=== PATIENT | female | born 1945 | race Asian ===

== ENCOUNTER 2016-09-30 06:45 | Inpatient (IN) ==
[2016-09-24 13:03] LABS: Basophils # (Auto) 0 K/mcL (0.0-0.3); Basophils % (Auto) 0.6 % (0.0-2.0); Eosinophils # (Auto) 0.2 K/mcL (0.0-0.7); Eosinophils % (Auto) 3.5 % (0.0-7.0); Granulocytes % (Auto) 50.5 % (38.0-78.0); Lymphocytes % (Auto) 37.9 % (15.5-49.0); Mean Cell Volume 90.2 fL (80.0-100.0); Mean Corpuscular HGB Conc 33.3 g/dL (31.0-36.0); Mean Corpuscular Hemoglobin 30.1 pg (26.0-34.0); Monocytes # (Auto) 0.4 K/mcL (0.1-0.9); Monocytes % (Auto) 7.5 % (1.0-12.0); Platelet Count 265 K/mcL (140-440); RBC 4.44 M/mcL (4.00-5.20); Red Cell Distribution Width 15.5 % (11.5-14.5)
[2016-09-24 13:06] LABS: Blood Urea Nitrogen 13 mg/dl (8-23)
[2016-09-24 13:24] LABS: Appearance,Urine CLEAR; Bacteria,Urine MOD /hpf (0); Bilirubin,Urine NEG (NEG); Color,Urine YELLOW; Glucose,Urine (UA) NEGATIVE (NEG); Leukocyte Esterase,Urine 500 /uL (NEG); Mucus,Urine FEW /hpf (0); Nitrate,Urine POS (NEG); Protein,Urine NEG (NEG); Specific Gravity,Urine 1.009 (1.000-1.035); Urine Blood NEG mg/dL (<0.03); Urine RBC 1 /hpf (0-1); Urine Squamous Epithelial Cell 1 /hpf (0-4); Urine Transitional Epi Cells < 1 /hpf (0-2); Urine WBC 14 /hpf (0-4); Urobilinogen,Urine NEG (NEG)
[~2016-09-30 06:45] MED LIST: CELECOXIB 200 MG CAPSULE PO SCH; KETOROLAC 30 MG, ROPIVACAINE HCL/PF 49.5 ML, EPINEPHrine 0.5 MG, 0.9 % SODIUM CHLORIDE ... IJ SCH; PREGABALIN 75 MG CAPSULE PO SCH; ceFAZolin 1 GM VIAL IV SCH; oxyCODONE 10 MG TAB.ER.12H PO SCH
[2016-09-30 07:40] LABS: Appearance,Urine CLEAR; Bacteria,Urine 0 /hpf (0); Bilirubin,Urine NEG (NEG); Color,Urine STRAW; Glucose,Urine (UA) NEGATIVE (NEG); Leukocyte Esterase,Urine 250 /uL (NEG); Mucus,Urine FEW /hpf (0); Nitrate,Urine NEG (NEG); Protein,Urine NEG (NEG); Specific Gravity,Urine 1.014 (1.000-1.035); Urine Blood NEG mg/dL (<0.03); Urine RBC 1 /hpf (0-1); Urine Squamous Epithelial Cell 1 /hpf (0-4); Urine Transitional Epi Cells 1 /hpf (0-2); Urine WBC 7 /hpf (0-4); Urobilinogen,Urine NEG (NEG)
[2016-09-30] MEDS ORDERED: GENTAMICIN PER PHARMACY IV ONE (09:22)
[2016-09-30] MEDS ORDERED: SODIUM CHLORIDE 0.9% IV ONE (09:45)
[2016-09-30] MEDS ORDERED: GENTAMICIN SULFATE IV ONE (09:45)
[2016-09-30] MEDS ORDERED: PROPOFOL 200 MG/20 ML VIAL IV ONE (10:10)
[2016-09-30] MEDS ORDERED: TRANEXAMIC ACID 1,000 MG/10 ML VIAL IV ONE ×2 (10:10→12:33)
[2016-09-30] MEDS ORDERED: KETAMINE 100 MG/ML ML IV ONE (10:10)
[2016-09-30] MEDS ORDERED: MIDAZOLAM 5 MG/5 ML VIAL IV ONE (10:10)
[2016-09-30] MEDS ORDERED: ONDANSETRON 4 MG/2 ML VIAL IV ONE (10:10)
[2016-09-30] MEDS ORDERED: PHENYLEPHRINE 10 MG/ML VIAL IV ONE (10:10)
[2016-09-30] MEDS ORDERED: LIDOCAINE HCL/PF 100 MG/5 ML SYRINGE IV ONE (10:10)
[2016-09-30] MEDS ORDERED: GLYCOPYRROLATE 0.2 MG/ML VIAL IV ONE (10:10)
[2016-09-30] MEDS ORDERED: GENTAMICIN SULFATE 800 MG/20 ML VIAL IR ONE (10:38)
[2016-09-30] MEDS ORDERED: FLEETS ADULT ENEMA PR PRN (12:33)
[2016-09-30] MEDS ORDERED: POLYETHYLENE GLYCOL 3350 17 GM PACKET PO PRN (12:33)
[2016-09-30] MEDS ORDERED: BISACODYL 10 MG SUPP.RECT PR PRN (12:33)
[2016-09-30] MEDS ORDERED: MAG HYDROX/AL HYDROX/SIMETH 30 ML ORAL.SUSP PO PRN (12:33)
[2016-09-30] MEDS ORDERED: METHOCARBAMOL 1,000 MG/10 ML VIAL IV PRN ×2 (12:33→12:45)
[2016-09-30] MEDS ORDERED: BENZOCAINE/MENTHOL 1 LOZENGE PO PRN ×2 (12:33→12:45)
[2016-09-30] MEDS ORDERED: MAGNESIUM HYDROXIDE 30 ML ORAL.SUSP PO PRN (12:33)
--- NOTE | 2016-09-30 12:33 | Brief Operative Note ---
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
[2016-09-30] MEDS ORDERED: DOCUSATE SODIUM 100 MG CAPSULE PO PRN (12:37)
[2016-09-30] MEDS ORDERED: IPRATROPIUM/ALBUTEROL 3 ML AMPUL.NEB NEB PRN (12:45)
[2016-09-30] MEDS ORDERED: fentaNYL 100 MCG/2 ML VIAL IV PRN (12:45)
[2016-09-30] MEDS ORDERED: PROMETHAZINE 25 MG/ML VIAL IV PRN (12:45)
[2016-09-30] MEDS ORDERED: LACTATED RINGERS 1,000 ML IV SCH (12:45)
[2016-09-30] MEDS ORDERED: ePHEDrine 50 MG/ML AMPUL IV PRN (12:45)
[2016-09-30] MEDS ORDERED: MEPERIDINE 25 MG/ML SYRINGE IV PRN (12:45)
[2016-09-30] MEDS ORDERED: HYDROmorphone 2 MG/ML SYRINGE IV PRN (12:45)
[2016-09-30] MEDS ORDERED: ACETAMINOPHEN 1,000 MG/100 ML BOTTLE IV ONE (12:45)
--- NOTE | 2016-09-30 13:40 | XRay Report ---
CLINICAL INFORMATION: Postsurgical follow-up TECHNIQUE: AP and crosstable lateral portable right knee COMPARISON: Previous examination 02/20/2016 FINDINGS: Status post right total knee arthroplasty. This is a surgical revision of placement of new femoral and tibial prosthetic complements with longer stems. Alignment is anatomic. There is postsurgical gas in the right knee joint space. IMPRESSION: Status post right total knee arthroplasty Interpreted and Authenticated by: James Martin 09/30/16
[2016-09-30] MEDS: 0.9 % SODIUM CHLORIDE 10 ML SYRINGE IV SCH ×2 (13:47→21:34)
[2016-09-30] MEDS: HYDROmorphone 2 MG/ML SYRINGE IV PRN ×3 (13:55→22:00)
[2016-09-30] MEDS: 0.9 % SODIUM CHLORIDE 1,000 ML IV SCH (13:55)
[2016-09-30] MEDS: ONDANSETRON 4 MG/2 ML VIAL IV PRN ×2 (14:03→18:27)
[2016-09-30] MEDS: ceFAZolin 1 GM VIAL IV SCH (17:50)
[2016-09-30] MEDS: KETOROLAC 15 MG/ML VIAL IV SCH (18:27)
[2016-09-30] MEDS: SENNOSIDES 1 TABLET PO SCH (21:31)
[2016-09-30] MEDS: LOSARTAN 50 MG TABLET PO SCH (21:32)
[2016-09-30] MEDS: ASPIRIN 325 MG ENTERIC COATED TABLET PO SCH (21:32)
[2016-09-30] MEDS: DOXAZOSIN 1 MG TABLET PO SCH (21:32)
[2016-09-30] MEDS: CIPROFLOXACIN 500 MG TABLET PO SCH (21:32)
[2016-09-30] MEDS: DOCUSATE SODIUM 100 MG CAPSULE PO SCH (21:32)
[2016-09-30] MEDS: ONDANSETRON ODT 4 MG TABLET SL PRN (21:47)
[2016-10-01] MEDS: KETOROLAC 15 MG/ML VIAL IV SCH ×5 (00:07→23:55)
[2016-10-01] MEDS: 0.9 % SODIUM CHLORIDE 1,000 ML IV SCH ×3 (00:13→17:47)
[2016-10-01] MEDS: HYDROmorphone 2 MG/ML SYRINGE IV PRN ×3 (00:41→10:59)
[2016-10-01] MEDS: ONDANSETRON 4 MG/2 ML VIAL IV PRN ×2 (01:22→07:38)
[2016-10-01] MEDS: ceFAZolin 1 GM VIAL IV SCH (01:35)
[2016-10-01] MEDS: ONDANSETRON ODT 4 MG TABLET SL PRN (03:34)
[2016-10-01] MEDS: 0.9 % SODIUM CHLORIDE 10 ML SYRINGE IV SCH ×3 (05:23→22:11)
--- NOTE | 2016-10-01 08:03 | Orthopedic Progress Note ---
Subjective Patient information: Note initiated : 10/01/16 at 8:02 am Service Date, if different from initiated Date: [] Patient: Yanick Falk 71 y/o F admitted on 09/30/16 for Right Total Knee Revision. Chief Complaint: [] Interval history: nauseated, pain under control Objective Vital signs: Vital Signs Temp Pulse Resp BP BP Pulse Ox 10/01/16 04:00 97.0 F 69 18 158/72 98 10/01/16 00:00 96.5 F L 54 L 20 158/58 96 09/30/16 22:05 98 09/30/16 20:37 98 09/30/16 20:00 96.8 F L 53 L 18 139/72 98 09/30/16 16:00 16 106/63 100 09/30/16 15:30 98.0 F 16 104/64 100 09/30/16 15:00 16 116/77 97 09/30/16 14:30 16 124/69 98 09/30/16 14:15 16 116/78 92 09/30/16 14:00 18 110/60 90 09/30/16 13:45 97.9 F 18 155/84 93 09/30/16 13:40 98.9 F 68 16 128/68 95 09/30/16 13:25 98.9 F 69 16 132/61 95 09/30/16 13:10 98.9 F 71 16 140/69 96 09/30/16 13:05 98.9 F 79 16 111/53 100 09/30/16 13:00 98.9 F 78 16 96/49 100 09/30/16 12:55 98.9 F 84 16 96/42 97 Intake and Output 09/30/16 10/01/16 10/01/16 21:59 05:59 13:59 Intake Total 1500 / 1500 587 / 587 Output Total 100 / 100 551 / 551 100 / 100 Balance -100 / -100 949 / 949 487 / 487 Intake: IV 1000 / 1000 587 / 587 Sodium Chloride 0.9% 1, 1000 / 1000 587 / 587 000 ml @ 100 mls/hr IV . Q10H STEPHANIE Rx#:[id number] Oral 500 / 500 Output: Void Amount 50 / 50 350 / 350 100 / 100 Straight 300 / 300 # of times incontinent of 1 / 1 urine Emesis 50 / 50 200 / 200 Other: # Voids 1 Weight 150 lb Intake & Output: Intake & Output 09/30/16 10/01/16 10/01/16 21:59 05:59 13:59 Intake Total 1500 / 1500 587 / 587 Output Total 100 / 100 551 / 551 100 / 100 Balance -100 / -100 949 / 949 487 / 487 Weight 150 lb Intake: IV 1000 / 1000 587 / 587 Sodium Chloride 0.9% 1, 1000 / 1000 587 / 587 000 ml @ 100 mls/hr IV . Q10H STEPHANIE Rx#:[id number] Oral 500 / 500 Output: Void Amount 50 / 50 350 / 350 100 / 100 Straight 300 / 300 # of times incontinent of 1 / 1 urine Emesis 50 / 50 200 / 200 Other: # Voids 1 Incision: Yes healing Incision clean and dry: Yes Dressing: Yes clean, Yes dry, Yes intact Weight bearing status: full Neurological exam IM: Yes alert, Yes normal gait, Yes oriented X3, Yes neurovascular intact Extremities exam IM: No calf tenderness, Yes Foot pink and warm, Yes neurovascular intact - Labs CBC & BMP: 10/01/16 04:04 09/24/16 11:36 Labs: Orthopedic Labs 09/24/16 11:36 PT 14.0 INR 1.1 10/01/16 09/24/16 04:04 11:36 Hgb 10.8 L 13.4 Hct 32.3 L 40.0 Assessment and Plan (1) Osteoarthritis pod 1 s/p revision tka pain control nausea control iv fluids restart pt Status: Chronic Comment: rt knee op 02/2016
[2016-10-01] MEDS ORDERED: PROMETHAZINE 25 MG/ML VIAL IV PRN (09:27)
[2016-10-01] MEDS ORDERED: PROCHLORPERAZINE 10 MG/2 ML VIAL IV PRN (10:43)
[2016-10-01] MEDS: ASPIRIN 325 MG ENTERIC COATED TABLET PO SCH ×2 (10:46→22:10)
[2016-10-01] MEDS: LOSARTAN 50 MG TABLET PO SCH ×2 (10:46→22:10)
[2016-10-01] MEDS: DOCUSATE SODIUM 100 MG CAPSULE PO SCH ×2 (10:46→22:10)
[2016-10-01] MEDS: CIPROFLOXACIN 500 MG TABLET PO SCH ×2 (10:46→22:10)
[2016-10-01] MEDS: DOXAZOSIN 1 MG TABLET PO SCH ×2 (10:59→22:10)
[2016-10-01] MEDS: HYDROmorphone 2 MG TABLET PO PRN ×2 (15:18→22:10)
[2016-10-01] MEDS: SENNOSIDES 1 TABLET PO SCH (22:11)
[2016-10-02] MEDS: HYDROmorphone 2 MG TABLET PO PRN ×2 (02:01→08:28)
[2016-10-02] MEDS: 0.9 % SODIUM CHLORIDE 1,000 ML IV SCH (03:56)
[2016-10-02] MEDS: KETOROLAC 15 MG/ML VIAL IV SCH (06:21)
[2016-10-02] MEDS: 0.9 % SODIUM CHLORIDE 10 ML SYRINGE IV SCH (06:21)
--- NOTE | 2016-10-02 07:04 | Orthopedic Progress Note ---
Subjective Patient information: Note initiated : 10/02/16 at 7:03 am Service Date, if different from initiated Date: [] Patient: Yanick Falk 71 y/o F admitted on 09/30/16 for Right Total Knee Revision. Chief Complaint: [] Interval history: doing much better today Objective Vital signs: Vital Signs Temp Pulse Resp BP Pulse Ox 10/02/16 06:00 89 10/02/16 04:00 98.7 F 89 20 127/68 94 10/02/16 00:00 98.7 F 86 20 134/76 93 10/01/16 20:00 98.6 F 90 22 128/66 94 10/01/16 17:00 69 10/01/16 16:00 97.6 F 16 151/69 99 10/01/16 11:54 97.2 F 16 135/70 100 10/01/16 08:00 96.8 F L 69 18 133/75 100 Intake and Output 10/01/16 10/02/16 10/02/16 21:59 05:59 13:59 Intake Total 940 / 940 1700 / 1700 Output Total 727 / 727 375 / 375 Balance 213 / 213 1325 / 1325 Intake: IV 940 / 940 1000 / 1000 Sodium Chloride 0.9% 1, 940 / 940 1000 / 1000 000 ml @ 100 mls/hr IV . Q10H STEPHANIE Rx#:[id number] Oral 700 / 700 Output: Void Amount 725 / 725 375 / 375 # of times incontinent of 2 / 2 urine Other: # Voids 1 Weight 152 lb Intake & Output: Intake & Output 10/01/16 10/02/16 10/02/16 21:59 05:59 13:59 Intake Total 940 / 940 1700 / 1700 Output Total 727 / 727 375 / 375 Balance 213 / 213 1325 / 1325 Weight 152 lb Intake: IV 940 / 940 1000 / 1000 Sodium Chloride 0.9% 1, 940 / 940 1000 / 1000 000 ml @ 100 mls/hr IV . Q10H STEPHANIE Rx#:[id number] Oral 700 / 700 Output: Void Amount 725 / 725 375 / 375 # of times incontinent of 2 / 2 urine Other: # Voids 1 Incision: Yes healing Incision clean and dry: Yes Dressing: Yes clean, Yes dry, Yes intact Weight bearing status: full Neurological exam IM: Yes abnormal gait, Yes alert, Yes oriented X3, Yes motor sensory intact, Yes neurovascular intact Extremities exam IM: No calf tenderness, Yes Foot pink and warm, Yes neurovascular intact - Labs CBC & BMP: 10/02/16 04:23 09/24/16 11:36 Labs: Orthopedic Labs 09/24/16 11:36 PT 14.0 INR 1.1 10/02/16 10/01/16 09/24/16 04:23 04:04 11:36 Hgb 9.2 L 10.8 L 13.4 Hct 27.6 L 32.3 L 40.0 Assessment and Plan (1) Osteoarthritis pod 2 s/p revision tka pain control nausea control - resolved this am pt home today Status: Chronic Comment: rt knee op 02/2016
--- NOTE | 2016-10-02 07:06 | Discharge Summary ---
Ortho Discharge - TKA - Patient Instructions Diet: Regular Diet Activity: activity as tolerated, ambulate with assistive device, weight bearing as tolerated Total Knee Protocol: For Total Knee: Start ROM FRANCO with stationary bike or rocking chair. Work on gaining full extension of knee. Posterior dislocation precautions provided. Hip abductor strengthening and gait training instructions provided. Apply Cryocuff as instructed. Dressing Care: May shower in 2 days - Problem Maintenance (1) Osteoarthritis Status: Chronic Comment: rt knee op 02/2016 - Follow Up Plan Disposition: Home, Self-Care Prognosis: Good Rehab Potential: Good I certify that the patient requires SNF services: No Overall status at discharge: patient is progressing back to baseline
[2016-10-02] MEDS: CIPROFLOXACIN 500 MG TABLET PO SCH (08:38)
[2016-10-02] MEDS: DOCUSATE SODIUM 100 MG CAPSULE PO SCH (08:38)
[2016-10-02] MEDS: LOSARTAN 50 MG TABLET PO SCH (08:38)
[2016-10-02] MEDS: DOXAZOSIN 1 MG TABLET PO SCH (08:38)
[2016-10-02] MEDS: ASPIRIN 325 MG ENTERIC COATED TABLET PO SCH (08:38)
== END 2016-10-02 11:10 | disposition home or self-care (01) | DRG 468 ==
LOC: MEDSUR 06:45
PROVIDERS: ADMIT Orthopaedic Surgery Sports Medicine; ATTEND Orthopaedic Surgery Sports Medicine